=== PATIENT | female | born 1995 | race Caucasian/White ===

== ENCOUNTER 2019-04-15 14:14 | Emergency (ER) | payer BC ==
[~2019-04-15] VITALS: Ht 162.5 cm; Wt 93.0 kg
--- NOTE | ~2019-04-15 | EKG ---
[place], [place] ELECTROCARDIOGRAM REPORT NAME: MALACHI ALMAZAN UNIT #: [id number] ROOM: DOCTOR: EPIPHANY DRAFT REPORT BIRTHDATE: [birth year] [facility] Test Date: 2019-04-15 Test Time: 15:21:49 Pat Name: MALACHI ALMAZAN Department: Room: Gender: F Driver Service Technician: SS RESP : 1995 Requested By: MASSIEL MATHIS DNP Order Number: [id number] Reading MD: Courtney Rankin MD Measurements Intervals Balm Rate: 91 P: 27 ME: 152 QRS: -40 QRSD: 95 T: 5 QT: 371 QTc: 457 Interpretive Statements Sinus rhythm Left axis deviation Low voltage, precordial leads Baseline wander in lead(s) V1,V3 Electronically Signed On 04-24-2019 5:23:05 PST by Courtney Rankin MD CM:EKGRPT:ELECTROCARDIOGRAM REPORT 1521 [id number] MASSIEL MATHIS DNP EPIPHANY DRAFT REPORT MASSIEL MATHIS DNP
[2019-04-15] MEDS ORDERED: MECLIZINE HCL25 M2 PO (14:19)
[2019-04-15 14:52] LABS: BASO % 0.4 % (0.0-1.0); EOS # 0.1 10*3/uL (0.0-0.4); EOS % 0.6 % (1.0-4.0); HEMOGLOBIN 14.3 g/dl (12.0-16.0); LYMPH # 2.9 10*3/uL (1.3-4.4); LYMPH % 34.4 % (27.0-41.0); MEAN CORPUSCULAR HGB 31.2 pg (27.0-31.0); MEAN CORPUSCULAR HGB CONC 33.3 g/dl (33.0-37.0); MEAN PLATELET VOLUME 10.7 fl (9.6-12.3); MONO # 0.6 10*3/uL (0.1-1.0); MONO % 7.2 % (3.0-9.0); NEUT # 4.8 10*3/uL (2.3-7.9); PLATELET COUNT AUTOMATED 260 10*3/uL (130-400); RED BLOOD COUNT 4.58 10*6/uL (4.10-5.10); RED CELL DISTRI WIDTH 12.6 % (0-14.5); WHITE BLOOD COUNT 8.5 10*3/uL (4.8-10.8)
[2019-04-15 15:01] LABS: MEAN CELL VOLUME 93.9 fl (81.0-99.0)
[2019-04-15 15:05] LABS: BILIRUBIN NEGATIVE (NEGATIVE); BLOOD NEGATIVE (NEGATIVE); CLARITY CLEAR (CLEAR); COLOR YELLOW (YELLOW); GLUCOSE NEGATIVE (NEGATIVE); KETONE NEGATIVE (NEGATIVE); LEUKO ESTERASE TRACE (NEGATIVE); NITRITE NEGATIVE (NEGATIVE); SPECIFIC GRAVITY <= 1.005 (1.005-1.030); UROBILINOGEN 0.2 E.U./dl (0.2-1.0)
[2019-04-15 15:07] LABS: ALBUMIN 4.1 gm/dl (3.1-4.5); ALKALINE PHOSPHATASE 71 U/L (45-117); BUN 17 mg/dl (7-24); CHLORIDE 106 mmol/L (98-107); CREATININE 1.07 mg/dL (0.55-1.02); POTASSIUM 4.1 mmol/L (3.5-5.1); SGOT/AST 15 IU/L (3-35); SGPT/ALT 25 U/L (12-78); SODIUM 138 mmol/L (136-145); TOTAL PROTEIN 8.5 gm/dL (6.4-8.2)
[2019-04-15 15:13] LABS: URINE AMPHETAMINES < 1000 (1000ng/ml); URINE BARBITURATES < 200 (200ng/ml); URINE BENZODIAZEPINES < 200 (200ng/ml); URINE CANNABINOIDS (THC) < 50 (50ng/ml); URINE COCAINE < 300 (300ng/ml); URINE METHADONE < 300 (300ng/ml); URINE OPIATES < 300 (300ng/ml)
[2019-04-15 15:23] LABS: BACTERIA 2+
[2019-04-15 15:31] LABS: BETA-HCG, QUANT < 1.0 mIU/mL (1-3); TROPONIN I < 0.015 ng/ml (<0.045)
[2019-04-15 15:31] LABS: URINE PHENCYCLIDINE < 25 (25ng/ml)
== END 2019-04-15 17:52 | disposition home or self-care (01) ==
LOC: ED 14:14
PROVIDERS: Nurse Practitioner Family
DX: B27.90 Infectious mononucleosis, unspecified without complication (principal); R55 Syncope and collapse; Z88.6 Allergy status to analgesic agent; Z91.040 Latex allergy status; Z88.2 Allergy status to sulfonamides